=== PATIENT | male | born 1940 ===

== ENCOUNTER → 2024-01-03 | Outpatient (CLI) | payer MEDICARE | LOC: M SOG 08:49 | PROVIDERS: ATTEND Physician Assistant | DX: S62.612A Displaced fracture of proximal phalanx of right middle finger, initial encounter for closed fracture (principal); S63.254A Unspecified dislocation of right ring finger, initial encounter; Y93.9 Activity, unspecified; Y92.9 Unspecified place or not applicable ==

== ENCOUNTER → 2024-01-16 | Outpatient (CLI) | payer MEDICARE | LOC: M SOG 14:24 | PROVIDERS: ATTEND Physician Assistant | DX: S62.612D Displaced fracture of proximal phalanx of right middle finger, subsequent encounter for fracture with routine healing (principal) ==

== ENCOUNTER → 2024-02-10 | Outpatient (CLI) | payer MEDICARE | LOC: M SOG 07:27 | PROVIDERS: ATTEND Physician Assistant | DX: S62.612D Displaced fracture of proximal phalanx of right middle finger, subsequent encounter for fracture with routine healing (principal) ==